=== PATIENT | female | born 1960 | race Caucasian/White ===

== ENCOUNTER 2019-07-10 17:32 | Emergency (ER) | payer SELFPAY ==
[~2019-07-10] VITALS: Ht 165.1 cm; Wt 72.6 kg
--- NOTE | 2019-07-10 18:00 | NUR ---
Pt stated she did not want to been seen anymore and walked out of ER.
== END 2019-07-10 18:05 | disposition left against medical advice (07) ==
LOC: ER 17:34
DX: Z53.21 Procedure and treatment not carried out due to patient leaving prior to being seen by health care provider (principal)
CPT/HCPCS: A4663